=== PATIENT | female | born 1975 | race Caucasian/White ===

== ENCOUNTER 2017-03-08 19:24 | Emergency (ER) | payer OTHER ==
[~2017-03-08] VITALS: Ht 165.1 cm; Wt 68.0 kg
[~2017-03-08 19:24] MED LIST: ACETAMINOPHEN325 M2 PO; ALAVERT10 M1 PO; AMOXICILLIN500 M2 PO; AUGMENTIN 875875 MG PO; BACTRIM DS 8001 TA1 PO; CELEXA10 MG PO; CELEXA20 MG PO; CELEXA40 MG PO; CEPHALEXIN500 M1 PO; CETIRIZINE10 MG PO; CLEOCIN150 MG PO; DELTASONE20 M1 PO; DOXYCYCLINE100 M3 PO; FLAGYL500 MG PO; FLEXERIL10 MG PO; FLONASE 0.05% 121 EA NAS; FLOVENT0.044 MG/A INH; KLONOPIN1 M1 PO; LASIX40 MG PO; NAPROSYN500 MG PO; OMEPRAZOLE20 M2 PO; OMEPRAZOLE40 MG PO; OXYBUTYNIN5 MG PO; PEPCID20 MG PO; PERCOCET 325 MG1 TA2 PO; PERCOCET 325 MG1 TA5 PO; PLAVIX75 M1 PO; POTASS CHL20 MEQ/15 PO; POTASSIUM CHLO20 ME3 PO; PREDNICOT20 MG PO; PRILOSEC10 MG PO; PRILOSEC40 MG PO; PROAIR HFA8.5 GM INH; PROTONIX20 MG PO; PROTONIX40 MG PO; PYRIDIUM200 MG PO; SPIRIVA -- 3018 MCG INH; TRAMADOL HCL50 MG PO; ULTRAM50 MG PO; VALIUM10 MG PO; VENTOLIN0.09 MG/AC INH; VIBRAMYCIN100 MG PO; VITAMIN B121000 MCG PO; WELLBUTRIN SR150 MG PO; ZYRTEC10 MG PO; [UNRECOGNIZED DRUG - CODE] PO
[2017-03-08 19:35] VITALS: BP 107/67
== END 2017-03-08 21:11 | disposition home or self-care (01) ==
LOC: ED 19:24
DX: S60.012A Contusion of left thumb without damage to nail, initial encounter (principal); F17.200 Nicotine dependence, unspecified, uncomplicated; Z88.6 Allergy status to analgesic agent; Z88.8 Allergy status to other drugs, medicaments and biological substances; Z79.899 Other long term (current) drug therapy; W22.8XXA Striking against or struck by other objects, initial encounter; Y93.89 Activity, other specified; Y92.89 Other specified places as the place of occurrence of the external cause; Y99.8 Other external cause status

== ENCOUNTER 2017-03-11 10:48 | Inpatient (IN) | payer OTHER ==
[~2017-03-11] VITALS: Ht 160 cm; Wt 77.6 kg
[2017-03-11 10:58] VITALS: BP 112/71
[2017-03-11 11:00] LABS: BASO # 0.1 10*3/uL (0.0-0.1); BASO % 0.6 % (0.0-1.0); EOS # 0.2 10*3/uL (0.0-0.4); EOS % 2.3 % (1.0-4.0); HEMATOCRIT 47.4 % (37.0-47.0); HEMOGLOBIN 16.1 g/dl (12.0-16.0); LYMPH # 2.4 10*3/uL (1.3-4.4); LYMPH % 29.9 % (27.0-41.0); MEAN CORPUSCULAR HGB 32.6 pg (27.0-31.0); MEAN PLATELET VOLUME 10.7 fl (9.6-12.3); MONO # 0.7 10*3/uL (0.1-1.0); MONO % 9.2 % (3.0-9.0); NEUT # 4.6 10*3/uL (2.3-7.9); NEUT % 57.7 % (47.0-73.0); PLATELET COUNT AUTOMATED 181 10*3/uL (130-400); RED BLOOD COUNT 4.94 10*6/uL (4.10-5.10); RED CELL DISTRI WIDTH 12.9 % (0-14.5); WHITE BLOOD COUNT 7.9 10*3/uL (4.8-10.8)
[2017-03-11 11:15] LABS: ACT PARTIAL THROMBO TIME 25.9 SECONDS (20.8-31.5)
[2017-03-11 11:16] LABS: ALBUMIN 3.7 gm/dl (3.1-4.5); ALKALINE PHOSPHATASE 73 U/L (45-117); BUN 8 mg/dl (7-24); CHLORIDE 105 mmol/L (98-107); CREATININE 0.92 mg/dL (0.55-1.02); POTASSIUM 3.7 mmol/L (3.5-5.1); SGOT/AST 10 IU/L (3-35); SGPT/ALT 19 U/L (12-78); SODIUM 137 mmol/L (136-145); TOTAL PROTEIN 7.4 gm/dL (6.4-8.2)
[2017-03-11 11:17] LABS: TROPONIN I < 0.015 ng/ml (<0.045)
--- NOTE | 2017-03-11 12:12 | NUR ---
REPORT CALLED TO [facility]. PATIENT CONDITION STABLE.
[2017-03-11 12:16] LABS: BILIRUBIN NEGATIVE (NEGATIVE); BLOOD TRACE-INTACT (NEGATIVE); CLARITY CLOUDY (CLEAR); COLOR YELLOW (YELLOW); GLUCOSE NEGATIVE (NEGATIVE); KETONE NEGATIVE (NEGATIVE); LEUKO ESTERASE NEGATIVE (NEGATIVE); NITRITE NEGATIVE (NEGATIVE); PH 6.5 (5.0-9.0); SPECIFIC GRAVITY <= 1.005 (1.005-1.030)
[2017-03-11 12:21] VITALS: BP 106/64
[2017-03-11 12:29] LABS: BACTERIA 2+
--- NOTE | 2017-03-11 12:30 | NUR ---
patient transported to [facility]. stable condition.
--- NOTE | 2017-03-11 13:00 | NUR ---
A 41, admitted to , under the services of VIDYA Pierre DO with a diagnosis of CHEST PAIN . Chief complaint is CHEST PAIN . Patient arrived via [facility] from ER. Monitor applied. Initial assessment completed. Vital signs taken and recorded. VIDYA PIERRE DO notified of admission to the unit. Orders received. See assessment for past medical history, medications and allergies. Patient and/or family oriented to unit. [facility] reviewed. Clothing/patient valuable form completed. ANEL WILBURN
[2017-03-11] MEDS ORDERED: CYMBALTA60 MG PO (13:39)
[2017-03-11] MEDS ORDERED: VALIUM10 MG PO (13:40)
[2017-03-11] MEDS ORDERED: NEURONTIN300 MG PO (13:41)
[2017-03-11] MEDS ORDERED: LATU60TA PO (13:42)
[2017-03-11] MEDS ORDERED: SEROQUEL XR150 MG PO (13:42)
[2017-03-11] MEDS ORDERED: DITROPAN XL5 MG PO (13:44)
--- NOTE | 2017-03-11 13:46 | NUR ---
called mak willett and verfified pt home meds however, pt and pt family states that she doesnt take her meds as prescribed
--- NOTE | 2017-03-11 15:10 | NUR ---
PT SIGNING OUT AMA, DR RODRIGUEZ NOTIFIED. MOBILE PHLEBOTOMIST JONAS NOTIFIED
== END 2017-03-11 15:10 | disposition left against medical advice (07) | DRG 880 ==
LOC: ED 10:48 → EDHOLD 11:26 → 5E 11:42
PROVIDERS: Emergency Medicine; ADMIT Internal Medicine
DX: F41.9 Anxiety disorder, unspecified (principal); Z91.14 Patient's other noncompliance with medication regimen; F17.210 Nicotine dependence, cigarettes, uncomplicated; F32.9 Major depressive disorder, single episode, unspecified; K21.9 Gastro-esophageal reflux disease without esophagitis; Z53.21 Procedure and treatment not carried out due to patient leaving prior to being seen by health care provider; R07.89 Other chest pain; J44.9 Chronic obstructive pulmonary disease, unspecified; Z71.6 Tobacco abuse counseling; Z88.1 Allergy status to other antibiotic agents; Z88.6 Allergy status to analgesic agent; Z88.5 Allergy status to narcotic agent; Z88.0 Allergy status to penicillin; R82.71 Bacteriuria; Z88.8 Allergy status to other drugs, medicaments and biological substances; Z79.899 Other long term (current) drug therapy; Z90.49 Acquired absence of other specified parts of digestive tract; Z82.49 Family history of ischemic heart disease and other diseases of the circulatory system; Z83.3 Family history of diabetes mellitus; Z82.3 Family history of stroke

== ENCOUNTER → 2017-03-30 | Outpatient (CLI) | payer OTHER ==
[~2017-03-30] MED LIST changes: +CYMBALTA60 MG PO; +DITROPAN XL5 MG PO; +LATU60TA PO; +NEURONTIN300 MG PO; +SEROQUEL XR150 MG PO
== END | disposition home or self-care (01) ==
LOC: RESCLI 01:59
DX: J44.9 Chronic obstructive pulmonary disease, unspecified (principal); H92.01 Otalgia, right ear; K21.9 Gastro-esophageal reflux disease without esophagitis; M54.5 Low back pain; F41.1 Generalized anxiety disorder; H90.3 Sensorineural hearing loss, bilateral; E55.9 Vitamin D deficiency, unspecified; Z71.6 Tobacco abuse counseling; Z72.0 Tobacco use; Z88.6 Allergy status to analgesic agent; Z88.1 Allergy status to other antibiotic agents; F32.9 Major depressive disorder, single episode, unspecified

== ENCOUNTER 2017-05-08 15:43 | Emergency (ER) | payer OTHER ==
[~2017-05-08] VITALS: Ht 160 cm; Wt 77.1 kg
[2017-05-08 17:00] VITALS: BP 102/68
== END 2017-05-08 16:50 | disposition home or self-care (01) ==
LOC: ED 15:43
DX: M25.562 Pain in left knee (principal); M17.12 Unilateral primary osteoarthritis, left knee; F41.9 Anxiety disorder, unspecified; J44.9 Chronic obstructive pulmonary disease, unspecified; K21.9 Gastro-esophageal reflux disease without esophagitis; F32.9 Major depressive disorder, single episode, unspecified; F17.200 Nicotine dependence, unspecified, uncomplicated; Z88.0 Allergy status to penicillin; Z88.6 Allergy status to analgesic agent; Z88.5 Allergy status to narcotic agent; Z79.899 Other long term (current) drug therapy

== ENCOUNTER → 2017-05-12 | Outpatient (CLI) | payer OTHER | END | disposition home or self-care (01) | LOC: RESCLI 01:05 | DX: J44.9 Chronic obstructive pulmonary disease, unspecified (principal); F41.1 Generalized anxiety disorder; J06.9 Acute upper respiratory infection, unspecified; J45.909 Unspecified asthma, uncomplicated; K21.9 Gastro-esophageal reflux disease without esophagitis; F32.9 Major depressive disorder, single episode, unspecified; Z88.6 Allergy status to analgesic agent; Z88.5 Allergy status to narcotic agent ==

== ENCOUNTER → 2017-06-17 | Outpatient (CLI) | payer OTHER | END | disposition home or self-care (01) | LOC: RESCLI 00:48 | DX: I95.9 Hypotension, unspecified (principal); J06.9 Acute upper respiratory infection, unspecified; L02.91 Cutaneous abscess, unspecified; R42 Dizziness and giddiness ==

== ENCOUNTER → 2017-06-30 | Outpatient (CLI) | payer OTHER ==
[2017-06-30 15:40] LABS: BASO # 0.1 10*3/uL (0.0-0.1); BASO % 0.7 % (0.0-1.0); EOS # 0.3 10*3/uL (0.0-0.4); HEMATOCRIT 45.9 % (37.0-47.0); HEMOGLOBIN 15.4 g/dl (12.0-16.0); LYMPH % 24.3 % (27.0-41.0); MEAN CELL VOLUME 96.8 fl (81.0-99.0); MEAN CORPUSCULAR HGB 32.5 pg (27.0-31.0); MEAN CORPUSCULAR HGB CONC 33.6 g/dl (33.0-37.0); MEAN PLATELET VOLUME 10.6 fl (9.6-12.3); MONO # 0.6 10*3/uL (0.1-1.0); MONO % 7.2 % (3.0-9.0); NEUT # 5.3 10*3/uL (2.3-7.9); NEUT % 63.6 % (47.0-73.0); PLATELET COUNT AUTOMATED 194 10*3/uL (130-400); RED BLOOD COUNT 4.74 10*6/uL (4.10-5.10); RED CELL DISTRI WIDTH 13.2 % (0-14.5); WHITE BLOOD COUNT 8.3 10*3/uL (4.8-10.8)
[2017-06-30 16:01] LABS: ALBUMIN 3.5 gm/dl (3.1-4.5); ALKALINE PHOSPHATASE 68 U/L (45-117); BUN 11 mg/dl (7-24); CHLORIDE 105 mmol/L (98-107); CHOLESTEROL 170 mg/dL (<200); CREATININE 0.85 mg/dL (0.55-1.02); HDL CHOLESTEROL 43 mg/dl (40-60); LDL CHOLESTEROL 96 mg/dL (9-159); POTASSIUM 4.2 mmol/L (3.5-5.1); SGOT/AST 12 IU/L (3-35); SGPT/ALT 21 U/L (12-78); SODIUM 139 mmol/L (136-145); TOTAL PROTEIN 6.8 gm/dL (6.4-8.2); TRIGLYCERIDES 155 mg/dl (<150); VLDL CHOLESTEROL 31 mg/dL (6-40)
[2017-06-30 16:48] LABS: VITAMIN D, 25-HYDROXY 6.3 ng/mL (30-100)
== END | disposition home or self-care (01) ==
LOC: RESCLI 02:38 → LAB 02:38
PROVIDERS: Internal Medicine
DX: R11.2 Nausea with vomiting, unspecified (principal)

== ENCOUNTER → 2017-10-09 | Day surgery (SDC) | payer OTHER ==
[~2017-10-09] MED LIST changes: +Motrin,Rufen800 MG PO; +PERCOCET 5-3251 EACH PO
--- NOTE | ~2017-10-09 | O ---
[place], [place] OPERATIVE NOTE NAME: FABY CANNON UNIT #: [id number] ROOM: DOCTOR: RUSSEL MATSON MD BIRTHDATE: [birth year] DOS: 10/09/2017 PREOPERATIVE DIAGNOSIS: Right groin cyst. POSTOPERATIVE DIAGNOSIS: Right groin cyst. PROCEDURE: Excision of right groin cyst. SURGEON: Russel Matson MD ART HISTORIAN: JOHNATHAN. ANESTHESIA: Local. INDICATIONS: This is a 42-year-old lady with longstanding history of a right groin cyst who is here for the above-mentioned procedure. The procedure and its complications were explained to the patient in detail. Complications that were discussed included but were not limited to bleeding, infection, hematoma/seroma/abscess formation and prolonged pain. She agreed to proceed. DESCRIPTION OF PROCEDURE: After identifying the patient, the patient was brought to the operating suite and laid in the supine position. After time-out procedure was called, the parts were painted and draped in the usual sterile fashion. An elliptical incision was marked around the area of the cyst. Local anesthesia was infiltrated and the incision was made. The cyst was excised after it was dissected away from the surrounding structures with the help of electrocautery. It was sent for histopathological diagnosis. Thereafter, hemostasis was achieved with the electrocautery and thereafter, the subcutaneous tissue was approximated with the help of 3-0 Vicryl in a running fashion and the skin edges were approximated with 4-0 Vicryl in a subcuticular running fashion. Dressing was placed. The patient tolerated the procedure well. There were no complications. Dr. Russel Matson, the attending surgeon, was present throughout the operating case. [place], [place] OPERATIVE NOTE NAME: FABY CANNON UNIT #: [id number] ROOM: DOCTOR: RUSSEL MATSON MD BIRTHDATE: [birth year] Russel Matson MD CM:OPRECORD:OPERATIVE NOTE [id number] RUSSEL MATSON MD 10/09/17 1250 interface
[2017-10-09 10:38] VITALS: BP 105/66
[2017-10-09 11:19] VITALS: BP 126/72
[2017-10-09 11:33] VITALS: BP 110/74
[2017-10-09 11:45] VITALS: BP 106/71; BP 97/47
== END | disposition home or self-care (01) ==
LOC: SDC 10-08 17:00
DX: L72.0 Epidermal cyst (principal); J44.9 Chronic obstructive pulmonary disease, unspecified; F41.9 Anxiety disorder, unspecified; F32.9 Major depressive disorder, single episode, unspecified; F17.210 Nicotine dependence, cigarettes, uncomplicated; Z79.899 Other long term (current) drug therapy; Z90.49 Acquired absence of other specified parts of digestive tract; Z88.0 Allergy status to penicillin; Z88.8 Allergy status to other drugs, medicaments and biological substances; Z98.890 Other specified postprocedural states

== ENCOUNTER → 2017-10-20 | Outpatient (CLI) | payer OTHER | END | disposition home or self-care (01) | LOC: RESCLI 04:32 | DX: J44.9 Chronic obstructive pulmonary disease, unspecified (principal); K21.9 Gastro-esophageal reflux disease without esophagitis; F41.9 Anxiety disorder, unspecified; F32.9 Major depressive disorder, single episode, unspecified; B85.0 Pediculosis due to Pediculus humanus capitis; G56.22 Lesion of ulnar nerve, left upper limb; I95.9 Hypotension, unspecified; N32.81 Overactive bladder; R13.10 Dysphagia, unspecified; H90.3 Sensorineural hearing loss, bilateral; E55.9 Vitamin D deficiency, unspecified; E53.8 Deficiency of other specified B group vitamins; Z72.0 Tobacco use; Z71.6 Tobacco abuse counseling ==

== ENCOUNTER 2017-11-16 22:21 | Emergency (ER) | payer OTHER ==
[~2017-11-16] VITALS: Ht 160 cm; Wt 70.3 kg
[~2017-11-16 22:21] MED LIST changes: -Motrin,Rufen800 MG PO
[2017-11-16 22:24] VITALS: BP 99/55
[2017-11-16] MEDS ORDERED: Motrin,Rufen800 MG PO (23:21)
== END 2017-11-17 00:17 | disposition home or self-care (01) ==
LOC: ED 22:21
DX: M17.12 Unilateral primary osteoarthritis, left knee (principal); M25.562 Pain in left knee; F17.200 Nicotine dependence, unspecified, uncomplicated; Z88.0 Allergy status to penicillin; Z88.6 Allergy status to analgesic agent; Z88.8 Allergy status to other drugs, medicaments and biological substances; Z79.899 Other long term (current) drug therapy